=== PATIENT | female | born 1935 | race Caucasian/White ===

== ENCOUNTER 2018-07-11 15:48 | Inpatient (IN) | payer MEDICARE, MEDICAID | END 2018-07-14 14:40 | disposition home or self-care (01) | LOC: ER 15:48 → ED HOLD 20:41 → SUR 3N 22:50 | DX: S32.10XA Unspecified fracture of sacrum, initial encounter for closed fracture (principal); N39.0 Urinary tract infection, site not specified; G93.40 Encephalopathy, unspecified; N17.9 Acute kidney failure, unspecified; E87.6 Hypokalemia; N18.9 Chronic kidney disease, unspecified; M81.0 Age-related osteoporosis without current pathological fracture; J44.9 Chronic obstructive pulmonary disease, unspecified ==

== ENCOUNTER 2019-04-07 16:09 | Inpatient (IN) | payer MEDICARE, MEDICAID ==
[~2019-04-07] VITALS: Ht 144.8 cm; Wt 36.0 kg
[~2019-04-07 16:09] MED LIST: ALBU8HFA PO; CLOP75TA35 PO; FLUT1DIS10 INH; METO-395 PO; TRAM50TA2 PO
[2019-04-07 18:38] LABS: BASOPHILS # (AUTO) 0.1 X10'3 (0-0.2); BASOPHILS % (AUTO) 0.5 % (0-1); EOSINOPHILS % (AUTO) 0.2 % (0-6); HEMOGLOBIN 9.7 g/dl (12.0-16.0); LYMPHOCYTES # (AUTO) 1.9 X10'3 (1.1-4.8); LYMPHOCYTES % (AUTO) 9.8 % (21-51); MEAN CORPUSCULAR HEMOGLOBIN 27.7 PG (27.0-31.0); MEAN CORPUSCULAR HGB CONC 32.2 g/dL (33.0-36.5); MEAN CORPUSCULAR VOLUME 86.1 FL (78-98); MONOCYTES # (AUTO) 1.7 X10'3 (0-0.9); MONOCYTES % (AUTO) 8.7 % (2-12); NEUTROPHILS % (AUTO) 80.8 % (42-75); PLATELET COUNT 373 X10'3 (140-440); RED BLOOD COUNT 3.49 X10'6 (4.20-5.60); RED CELL DISTRIBUTION WIDTH 20.4 % (11.5-14.5); WHITE BLOOD COUNT 19.8 X10'3 (4.5-11.0)
[2019-04-07] MEDS ORDERED: normal saline 1000ml 1,000 ML IV ONE ×2 (18:45→21:05)
[2019-04-07] MEDS ORDERED: clopidogrel 300mg tablet PO ONE (19:00)
[2019-04-07] MEDS ORDERED: CefTRIAXone 2gm/D5W 50ml 50 ML IV ONE (19:00)
[2019-04-07 19:04] LABS: ALANINE AMINOTRANSFERASE 53 U/L (12-78); ALBUMIN 2.1 G/DL (3.4-5.0); ALBUMIN/GLOBULIN RATIO 0.4 (1.1-1.5); ALKALINE PHOSPHATASE 509 IU/L (46-116); ANION GAP 10 (8-16); ASPARTATE AMINO TRANSFERASE 55 U/L (10-37); BILIRUBIN,TOTAL 0.6 MG/DL (0.1-1.0); BLOOD UREA NITROGEN 36 MG/DL (7-18); BUN/CREATININE RATIO 32.1 (6.6-38.0); CALCIUM 8.6 MG/DL (8.5-10.1); CHLORIDE 104 MMOL/L (99-107); CREATININE 1.12 MG/DL (0.40-0.90); ETHANOL < 0.010 GM/DL (0.0-0.010); GLUCOSE 95 MG/DL (70-104); LIPASE 208 U/L (73-393); PARTIAL THROMBOPLASTIN TIME 32 SECONDS (22-32); POTASSIUM 3.2 MMOL/L (3.5-5.1); SODIUM 140 MMOL/L (135-145); TOTAL PROTEIN 7.2 G/DL (6.4-8.2); eGFR 47 ML/MIN
[2019-04-07 19:24] LABS: PLATELET ESTIMATE NORMAL; TOTAL CELLS COUNTED 100; TOXIC GRANULATION 1+; TOXIC VACUOLATION FEW
[2019-04-07 19:25] LABS: ANISOCYTOSIS 3+; POLYCHROMASIA FEW; TARGET CELLS FEW
[2019-04-07 19:26] LABS: HYPOCHROMASIA 1+
[2019-04-07 19:34] LABS: CLARITY,URINE CLOUDY (Clear); COLOR,URINE YELLOW (Yellow); GLUCOSE, URINE NEGATIVE (Neg); KETONES,URINE NEGATIVE (Neg); LEUKOCYTE ESTERASE ,URINE SMALL (Neg); NITRITES, URINE POSITIVE (Neg); OCCULT BLOOD,URINE TRACE-INTACT (Neg); PH,URINE 5.5 (4.8-8.0); PROTEIN,URINE 30 mg/dl (Neg); UROBILINOGEN,URINE 0.2 E.U/dL (0.2-1.0)
--- NOTE | 2019-04-07 19:35 | NUR ---
[facility] CAREGIVER PHONE NUMBER [phone]
[2019-04-07 19:41] LABS: UA COLLECTION TYPE STRAIGHT CATH
[2019-04-07 19:42] LABS: WBC,URINE TNTC /HPF (0-4)
[2019-04-07 19:43] LABS: BACTERIA,URINE 4+ /HPF (Neg); MUCUS STRANDS FEW /LPF (Neg); RBC,URINE 0-2 /HPF (0-2); SQUAMOUS EPITHELIAL CELL,UR FEW /LPF (FEW); WBC CLUMPS,URINE MODERATE /HPF (NEGATIVE)
[2019-04-07] MEDS ORDERED: normal saline 1000ML IV soln IVB ONE (19:45)
[2019-04-07] MEDS ORDERED: azithromycin/NS 500mg/250ml 250 ML IV ONE (19:45)
[2019-04-07] MEDS ORDERED: acetaminophen 325mg tablet PO ONE (20:30)
[2019-04-07] MEDS ORDERED: nitroGLYCERIN 0.4mg SUBLingual tab SL PRN (21:05)
[2019-04-07] MEDS ORDERED: magnesium 4gm in 100ml NS 100 ML IV PRN (21:05)
[2019-04-07] MEDS ORDERED: ondansetron/PF 4mg/2ml inj IV PRN (21:05)
[2019-04-07] MEDS ORDERED: magnesium hydroxide 30ml (MOM) UD suspension PO PRN (21:05)
[2019-04-07] MEDS ORDERED: potassium Cl 20 mEq SR tablet PO PRN (21:05)
[2019-04-07] MEDS ORDERED: magnesium 2GM in 50ml NS 50 ML IV PRN (21:05)
[2019-04-07] MEDS ORDERED: magnesium Cl slow-release 64mg tablet PO PRN (21:05)
[2019-04-07] MEDS ORDERED: bisacodyl 10mg suppository rectal RC PRN (21:05)
[2019-04-07] MEDS ORDERED: mag hydrox/Alum hydrox/simeth 30ml oral suspension PO PRN (21:05)
[2019-04-07] MEDS ORDERED: acetaminophen 325mg tablet PO PRN (21:05)
[2019-04-07] MEDS ORDERED: morphine 2 MG/ML inj. syringe IV PRN (21:05)
[2019-04-07] MEDS ORDERED: potassium CL 10mEq/100ml bag 100 ML IV PRN ×2 (21:05)
[2019-04-07 22:00] VITALS: BP 115/55
--- NOTE | 2019-04-07 22:00 | NUR ---
Patient in room PCU 3024. I have received report from Juanis FUNK RN and had the opportunity to ask questions and assume patient care.
--- NOTE | 2019-04-07 22:05 | NUR ---
Pt arrived via gurney in no acute distress. Assisted to bed and oriented to surroundings and POC. HH sandwich given w/juice, tolerating well. Pt states she is unable to stand or transfer. Moves all extremities well while in bed. IV NS infusing as ordered. Telemetry unit placed showing SR. Dr. Goncalves notified of second Troponin result of 2.85. Orders given. To continue Troponin series, ACS Protocol. Pt. has complaints of generalized joint pain. Tylenol admin. f/good effect. Denies CP at this time.
[2019-04-07] MEDS ORDERED: heparin 10,000 units/1 ML INJ IV ONE (23:25)
[2019-04-07] MEDS ORDERED: ipratropium/albuterol 3ml nebule NEB PRN (23:45)
[2019-04-08] MEDS: acetaminophen 325mg tablet PO PRN ×3 (00:13→20:13)
[2019-04-08] MEDS: heparin 25,000 UNIT/250ml bag 250 ML IV SCH ×3 (00:49→17:20)
[2019-04-08 02:00] VITALS: BP 114/56
[2019-04-08] MEDS ORDERED: albuterol 2.5 MG/3 ML nebule NEB SCH (02:00)
[2019-04-08 03:04] LABS: BASOPHILS % (AUTO) 0.2 % (0-1); EOSINOPHILS # (AUTO) 0.2 X10'3 (0-0.9); EOSINOPHILS % (AUTO) 0.7 % (0-6); HEMATOCRIT 27.3 % (35.0-45.0); HEMOGLOBIN 8.8 g/dl (12.0-16.0); LYMPHOCYTES # (AUTO) 1.9 X10'3 (1.1-4.8); LYMPHOCYTES % (AUTO) 8.9 % (21-51); MEAN CORPUSCULAR HEMOGLOBIN 27.8 PG (27.0-31.0); MEAN CORPUSCULAR HGB CONC 32.1 g/dL (33.0-36.5); MEAN CORPUSCULAR VOLUME 86.7 FL (78-98); MEAN PLATELET VOLUME 9.9 FL (7.4-10.4); MONOCYTES # (AUTO) 2.4 X10'3 (0-0.9); MONOCYTES % (AUTO) 10.9 % (2-12); NEUTROPHILS # (AUTO) 17.2 X10'3 (1.8-7.7); NEUTROPHILS % (AUTO) 79.3 % (42-75); PLATELET COUNT 340 X10'3 (140-440); RED BLOOD COUNT 3.15 X10'6 (4.20-5.60); RED CELL DISTRIBUTION WIDTH 19.9 % (11.5-14.5); WHITE BLOOD COUNT 21.7 X10'3 (4.5-11.0)
[2019-04-08 03:15] LABS: ALBUMIN 1.9 G/DL (3.4-5.0); ANION GAP 11 (8-16); BLOOD UREA NITROGEN 29 MG/DL (7-18); BUN/CREATININE RATIO 27.9 (6.6-38.0); CALCIUM 8.2 MG/DL (8.5-10.1); CHLORIDE 107 MMOL/L (99-107); CREATININE 1.04 MG/DL (0.40-0.90); GLUCOSE 164 MG/DL (70-104); MAGNESIUM 1.8 MG/DL (1.5-2.4); SODIUM 142 MMOL/L (135-145); TOTAL CARBON DIOXIDE 24.3 MMOL/L (24-32); eGFR 51 ML/MIN
[2019-04-08 03:29] LABS: TROPONIN I 2.91 NG/ML (0.0-0.05)
[2019-04-08] MEDS: potassium Cl 20 mEq SR tablet PO PRN ×2 (04:37→09:12)
[2019-04-08 06:00] VITALS: BP 122/52
--- NOTE | 2019-04-08 06:00 | NUR ---
Patient in room PCU 3024. I have received report from Kirstin MORENO and had the opportunity to ask questions and assume patient care.
[2019-04-08 06:17] LABS: TOTAL CELLS COUNTED 100
[2019-04-08 06:19] LABS: ANISOCYTOSIS 2+; PLATELET ESTIMATE NORMAL
[2019-04-08 06:20] LABS: HYPOCHROMASIA 1+
[2019-04-08 06:21] LABS: POLYCHROMASIA FEW
[2019-04-08 06:24] LABS: PARTIAL THROMBOPLASTIN TIME 42 SECONDS (22-32)
--- NOTE | 2019-04-08 06:27 | NUR ---
Problems reprioritized. Patient report given, questions answered & plan of care reviewed with Gopi MORENO.
[2019-04-08 06:29] LABS: SMUDGE CELLS 2+
--- NOTE | 2019-04-08 06:49 | NUR ---
PAGER ID: [phone] MESSAGE: RE: Reva Flores, Room: [facility]. Critical 12hr trop 2.51. 6hr trop was 2.91 -Gopi [facility] #[id number] Dr. Goncalves paged concerning Pt's 12hr hour crit trop of 2.51
[2019-04-08] MEDS: K and/or MAG REPLACEMENT MC SCH (08:00)
[2019-04-08] MEDS: ipratropium/albuterol 3ml nebule NEB SCH ×3 (08:19→20:30)
[2019-04-08] MEDS: budesonide 0.5mg/2ml UD nebule IH SCH ×2 (08:19→20:30)
[2019-04-08] MEDS: clopidogrel 75mg tablet PO SCH (09:09)
[2019-04-08] MEDS: azithromycin 250mg tablet PO SCH (09:09)
[2019-04-08] MEDS: metoprolol succinate 25mg (24-HOUR) SR. Tablet PO SCH (09:10)
[2019-04-08] MEDS: heparin 10,000 units/1 ML INJ IV PRN ×2 (09:26→17:18)
[2019-04-08] MEDS: CefTRIAXone 2gm/D5W 50ml 50 ML IV SCH (09:30)
--- NOTE | 2019-04-08 10:37 | NUR ---
Pt with low BMI of 17.2 however current documented wt is pt stated. Per H&P pt is a poor historian and demented. Per wt hx pt 40 kg August 2016 and 42.7 kg in June of this year and pt with 75-100% PO intake on heart healthy diet during that admit. Pt currently on heart healthy diet, pending documentation of PO intake this visit. No documented edema. No malnutrition at this time. Will continue to follow. Addendum: 04/08/19 at [address] Amended: Links added.
[2019-04-08 11:00] VITALS: BP 115/47
--- NOTE | 2019-04-08 12:51 | NUR ---
PAGER ID: [phone] MESSAGE: RE: Reva Flores, Room: 3023B. Pt has had 5 loose stools. Do you want an order to check for c-diff? -[facility] #[id number] Dr. zhang paged concerning Pt's multiple loose stools.
--- NOTE | 2019-04-08 13:50 | NUR ---
PAGER ID: [phone] MESSAGE: RE: Reva Flores, Room: 3023b. 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 Can we feed Pt? -[facility] #[id number] Dr. 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
[2019-04-08 15:00] VITALS: BP 142/65
[2019-04-08 18:00] VITALS: BP 126/47
--- NOTE | 2019-04-08 18:20 | NUR ---
Problems reprioritized. Patient report given, questions answered & plan of care reviewed with Kirstin MORENO.
--- NOTE | 2019-04-08 19:43 | NUR ---
Patient in room PCU 3023. I have received report from Gopi MORENO and had the opportunity to ask questions and assume patient care.
[2019-04-08] MEDS: lactobacillus rhamnosus 10,000 MMU CELLS/CAPSULE PO SCH (20:12)
[2019-04-08 22:00] VITALS: BP 131/59
[2019-04-09] VITALS (7 sets, daily range): BP systolic 121–167; BP diastolic 53–73
[2019-04-09] MEDS: heparin 10,000 units/1 ML INJ IV PRN (01:25)
[2019-04-09] MEDS: heparin 25,000 UNIT/250ml bag 250 ML IV SCH (01:28)
--- NOTE | 2019-04-09 06:46 | NUR ---
Patient in room PCU 3023. I have received report from JOSH Fulton and had the opportunity to ask questions and assume patient care.
--- NOTE | 2019-04-09 07:20 | NUR ---
Problems reprioritized. Patient report given, questions answered & plan of care reviewed with Christin MORENO.
[2019-04-09] MEDS: budesonide 0.5mg/2ml UD nebule IH SCH ×2 (08:00→21:08)
[2019-04-09] MEDS: K and/or MAG REPLACEMENT MC SCH (08:00)
[2019-04-09 08:01] LABS: BASOPHILS % (AUTO) 0.2 % (0-1); EOSINOPHILS # (AUTO) 0.2 X10'3 (0-0.9); EOSINOPHILS % (AUTO) 0.8 % (0-6); HEMOGLOBIN 9.1 g/dl (12.0-16.0); LYMPHOCYTES % (AUTO) 9.3 % (21-51); MEAN CORPUSCULAR HEMOGLOBIN 27.8 PG (27.0-31.0); MEAN CORPUSCULAR HGB CONC 32.4 g/dL (33.0-36.5); MEAN CORPUSCULAR VOLUME 85.9 FL (78-98); MEAN PLATELET VOLUME 9.7 FL (7.4-10.4); MONOCYTES # (AUTO) 1.7 X10'3 (0-0.9); MONOCYTES % (AUTO) 7.9 % (2-12); NEUTROPHILS # (AUTO) 17.3 X10'3 (1.8-7.7); NEUTROPHILS % (AUTO) 81.8 % (42-75); PLATELET COUNT 421 X10'3 (140-440); RED BLOOD COUNT 3.26 X10'6 (4.20-5.60); RED CELL DISTRIBUTION WIDTH 20.5 % (11.5-14.5); WHITE BLOOD COUNT 21.1 X10'3 (4.5-11.0)
[2019-04-09 08:06] LABS: ALBUMIN 2.1 G/DL (3.4-5.0); ANION GAP 10 (8-16); BLOOD UREA NITROGEN 15 MG/DL (7-18); BUN/CREATININE RATIO 18.8 (6.6-38.0); CALCIUM 8.6 MG/DL (8.5-10.1); CHLORIDE 105 MMOL/L (99-107); GLUCOSE 124 MG/DL (70-104); MAGNESIUM 1.8 MG/DL (1.5-2.4); POTASSIUM 3.7 MMOL/L (3.5-5.1); SODIUM 140 MMOL/L (135-145); TOTAL CARBON DIOXIDE 24.7 MMOL/L (24-32); eGFR 69 ML/MIN
[2019-04-09] MEDS: CefTRIAXone 2gm/D5W 50ml 50 ML IV SCH (08:41)
[2019-04-09] MEDS: metoprolol succinate 25mg (24-HOUR) SR. Tablet PO SCH (08:41)
[2019-04-09] MEDS: azithromycin 250mg tablet PO SCH (08:41)
[2019-04-09] MEDS: lactobacillus rhamnosus 10,000 MMU CELLS/CAPSULE PO SCH ×2 (08:41→19:24)
[2019-04-09] MEDS: clopidogrel 75mg tablet PO SCH (08:42)
[2019-04-09] MEDS: acetaminophen 325mg tablet PO PRN ×2 (08:42→19:24)
[2019-04-09] MEDS: ipratropium/albuterol 3ml nebule NEB SCH ×3 (09:00→21:07)
[2019-04-09 09:23] LABS: ANISOCYTOSIS 3+; HYPOCHROMASIA 1+; LARGE PLATELETS FEW; PLATELET ESTIMATE NORMAL; POLYCHROMASIA FEW; SCHISTOCYTES FEW
[2019-04-09] MEDS ORDERED: pneumococcal 23-VAL P-sac vacc 25 mcg/0.5ml vial IMVAC ONE (10:00)
[2019-04-09] MEDS ORDERED: FLU VACC QS2019-20(6MOS UP)/PF 60 MCG/0.5 ML SYRINGE IMVAC ONE (10:00)
[2019-04-09] MEDS: traMADol 50MG tablet PO PRN (16:06)
--- NOTE | 2019-04-09 18:23 | NUR ---
Problems reprioritized. Patient report given, questions answered & plan of care reviewed with JOSH Samuels.
--- NOTE | 2019-04-09 19:01 | NUR ---
Patient in room PCU 3023. I have received report from Christin MORENO and had the opportunity to ask questions and assume patient care.
[2019-04-09] MEDS: heparin, porcine 5000 units/ml vial SQ SCH (19:24)
[2019-04-10] VITALS (7 sets, daily range): BP systolic 104–146; BP diastolic 58–87
--- NOTE | 2019-04-10 06:16 | NUR ---
Problems reprioritized. Patient report given, questions answered & plan of care reviewed with Christin MORENO.
--- NOTE | 2019-04-10 06:18 | NUR ---
Patient in room PCU 3023. I have received report from JOSH Samuels and had the opportunity to ask questions and assume patient care.
[2019-04-10 06:19] LABS: ALBUMIN 2.1 G/DL (3.4-5.0); ANION GAP 11 (8-16); BLOOD UREA NITROGEN 16 MG/DL (7-18); BUN/CREATININE RATIO 18.8 (6.6-38.0); CALCIUM 8.5 MG/DL (8.5-10.1); CHLORIDE 106 MMOL/L (99-107); CREATININE 0.85 MG/DL (0.40-0.90); GLUCOSE 99 MG/DL (70-104); MAGNESIUM 1.7 MG/DL (1.5-2.4); POTASSIUM 3.6 MMOL/L (3.5-5.1); SODIUM 143 MMOL/L (135-145); TOTAL CARBON DIOXIDE 26.3 MMOL/L (24-32); eGFR 64 ML/MIN
--- NOTE | 2019-04-10 06:19 | NUR ---
Problems reprioritized. Patient report given, questions answered & plan of care reviewed with Christin MORENO and Ashley MORENO.
[2019-04-10 06:46] LABS: BASOPHILS # (AUTO) 0.1 X10'3 (0-0.2); BASOPHILS % (AUTO) 0.3 % (0-1); EOSINOPHILS # (AUTO) 0.4 X10'3 (0-0.9); HEMATOCRIT 29.5 % (35.0-45.0); HEMOGLOBIN 9.4 g/dl (12.0-16.0); LYMPHOCYTES # (AUTO) 1.8 X10'3 (1.1-4.8); LYMPHOCYTES % (AUTO) 9.5 % (21-51); MEAN CORPUSCULAR HEMOGLOBIN 27.8 PG (27.0-31.0); MEAN CORPUSCULAR HGB CONC 31.9 g/dL (33.0-36.5); MEAN CORPUSCULAR VOLUME 87.1 FL (78-98); MEAN PLATELET VOLUME 10.1 FL (7.4-10.4); MONOCYTES # (AUTO) 2.2 X10'3 (0-0.9); MONOCYTES % (AUTO) 11.4 % (2-12); NEUTROPHILS # (AUTO) 14.5 X10'3 (1.8-7.7); NEUTROPHILS % (AUTO) 76.8 % (42-75); PLATELET COUNT 442 X10'3 (140-440); RED BLOOD COUNT 3.39 X10'6 (4.20-5.60); RED CELL DISTRIBUTION WIDTH 20.2 % (11.5-14.5); WHITE BLOOD COUNT 18.9 X10'3 (4.5-11.0)
[2019-04-10] MEDS: K and/or MAG REPLACEMENT MC SCH (08:00)
[2019-04-10] MEDS: azithromycin 250mg tablet PO SCH (08:56)
[2019-04-10] MEDS: metoprolol succinate 25mg (24-HOUR) SR. Tablet PO SCH (08:56)
[2019-04-10] MEDS: lactobacillus rhamnosus 10,000 MMU CELLS/CAPSULE PO SCH ×2 (08:56→19:40)
[2019-04-10] MEDS: clopidogrel 75mg tablet PO SCH (08:56)
[2019-04-10] MEDS: heparin, porcine 5000 units/ml vial SQ SCH ×2 (08:56→19:40)
[2019-04-10] MEDS: ipratropium/albuterol 3ml nebule NEB SCH ×3 (09:27→20:41)
[2019-04-10] MEDS: budesonide 0.5mg/2ml UD nebule IH SCH ×2 (09:27→20:41)
[2019-04-10] MEDS: CefTRIAXone 2gm/D5W 50ml 50 ML IV SCH (10:54)
--- NOTE | 2019-04-10 18:35 | NUR ---
Patient in room PCU 3016. I have received report from JOSH Waller and had the opportunity to ask questions and assume patient care.
--- NOTE | 2019-04-10 18:48 | NUR ---
Problems reprioritized. Patient report given, questions answered & plan of care reviewed with JOSH Aguero.
[2019-04-10] MEDS: acetaminophen 325mg tablet PO PRN (19:41)
--- NOTE | 2019-04-10 19:50 | NUR ---
Pt's pain 8/10 on right hip. BP 104/86. Tylenol 650 mg given. Will continue to monitor.
[2019-04-10] MEDS: traMADol 50MG tablet PO PRN (22:53)
[2019-04-11 02:00] VITALS: BP 122/65
[2019-04-11] MEDS: acetaminophen 325mg tablet PO PRN ×2 (02:06→10:00)
[2019-04-11 06:01] LABS: BASOPHILS # (AUTO) 0.1 X10'3 (0-0.2); BASOPHILS % (AUTO) 0.4 % (0-1); EOSINOPHILS # (AUTO) 0.4 X10'3 (0-0.9); HEMATOCRIT 29.9 % (35.0-45.0); HEMOGLOBIN 9.5 g/dl (12.0-16.0); LYMPHOCYTES % (AUTO) 10.1 % (21-51); MEAN CORPUSCULAR HEMOGLOBIN 27.9 PG (27.0-31.0); MEAN CORPUSCULAR HGB CONC 31.7 g/dL (33.0-36.5); MEAN CORPUSCULAR VOLUME 88.1 FL (78-98); MEAN PLATELET VOLUME 9.9 FL (7.4-10.4); MONOCYTES # (AUTO) 2.3 X10'3 (0-0.9); MONOCYTES % (AUTO) 11.5 % (2-12); NEUTROPHILS # (AUTO) 15.3 X10'3 (1.8-7.7); PLATELET COUNT 435 X10'3 (140-440); WHITE BLOOD COUNT 20.2 X10'3 (4.5-11.0)
[2019-04-11 06:21] LABS: ALBUMIN 2.1 G/DL (3.4-5.0); ANION GAP 12 (8-16); BLOOD UREA NITROGEN 32 MG/DL (7-18); BUN/CREATININE RATIO 29.6 (6.6-38.0); CALCIUM 9.5 MG/DL (8.5-10.1); CHLORIDE 104 MMOL/L (99-107); CREATININE 1.08 MG/DL (0.40-0.90); GLUCOSE 108 MG/DL (70-104); POTASSIUM 4.2 MMOL/L (3.5-5.1); SODIUM 140 MMOL/L (135-145); TOTAL CARBON DIOXIDE 23.8 MMOL/L (24-32); eGFR 49 ML/MIN
--- NOTE | 2019-04-11 06:30 | NUR ---
Patient in room PCU 3016. I have received report from More MORENO and had the opportunity to ask questions and assume patient care. Patient asleep in bed with no complaints at this time. All immediate needs met.
[2019-04-11 06:38] LABS: ANISOCYTOSIS 3+; PLATELET ESTIMATE NORMAL
[2019-04-11 06:39] LABS: LARGE PLATELETS FEW
--- NOTE | 2019-04-11 06:39 | NUR ---
Problems reprioritized. Patient report given, questions answered & plan of care reviewed with JOSH Oquendo.
--- NOTE | 2019-04-11 06:39 | NUR ---
Problems reprioritized. Patient report given, questions answered & plan of care reviewed with JOSH Oquendo.
--- NOTE | 2019-04-11 06:49 | NUR ---
Patient in room U 3016. I have received report from More MORENO and had the opportunity to ask questions and assume patient care. Patient in room with sitter, resting comfortably.
[2019-04-11 07:00] VITALS: BP 113/60
[2019-04-11] MEDS: ipratropium/albuterol 3ml nebule NEB SCH ×3 (07:10→20:02)
[2019-04-11] MEDS: budesonide 0.5mg/2ml UD nebule IH SCH ×2 (07:11→20:02)
[2019-04-11] MEDS: K and/or MAG REPLACEMENT MC SCH (08:00)
[2019-04-11] MEDS: heparin, porcine 5000 units/ml vial SQ SCH ×2 (09:59→20:33)
[2019-04-11] MEDS: lactobacillus rhamnosus 10,000 MMU CELLS/CAPSULE PO SCH ×2 (10:00→20:33)
[2019-04-11] MEDS: metoprolol succinate 25mg (24-HOUR) SR. Tablet PO SCH (10:00)
[2019-04-11] MEDS: azithromycin 250mg tablet PO SCH (10:01)
[2019-04-11] MEDS: clopidogrel 75mg tablet PO SCH (10:01)
[2019-04-11] MEDS: traMADol 50MG tablet PO PRN ×2 (10:01→16:59)
[2019-04-11] MEDS: CefTRIAXone 2gm/D5W 50ml 50 ML IV SCH (10:02)
[2019-04-11 11:00] VITALS: BP 151/56
[2019-04-11 15:00] VITALS: BP 114/46
--- NOTE | 2019-04-11 15:31 | NUR ---
Initial: Pt PO 75-100% heart healthy meals meeting needs. LBM 04/10. No nutrition concerns at this time. Will continue to monitor. Rec: 1. continue heart healthy diet 2. wt per rx Addendum: 04/11/19 at [address] Amended: Links added.
[2019-04-11 18:00] VITALS: BP 149/48
--- NOTE | 2019-04-11 18:15 | NUR ---
Patient in room PCU 3016. I have received report from Azra MORENO and had the opportunity to ask questions and assume patient care. Patient is finishing up her dinner, she has a sitter at bedside. Will continue to monitor closely.
--- NOTE | 2019-04-11 18:41 | NUR ---
Problems reprioritized. Patient report given, questions answered & plan of care reviewed with Nadja MORENO. Patient stable at transfer of care
--- NOTE | 2019-04-11 18:42 | NUR ---
Patient in room 7955E Problems reprioritized. Patient report given, questions answered & plan of care reviewed with Susannah MORENO. Patient stable at transfer of care
--- NOTE | 2019-04-11 18:57 | NUR ---
Student documentation: I have reviewed and agree with all interventions, assessments performed and documented by Debbie FARNSWORTH. Student Medication Administration: For this medication-pass time frame, all medication were reviewed, dispensed, administered and documented per hospital policy by Debbie MORENO.
[2019-04-11] MEDS: morphine 2 MG/ML inj. syringe IV PRN (21:40)
[2019-04-11 22:00] VITALS: BP 110/60
[2019-04-12 02:00] VITALS: BP 124/65
[2019-04-12 04:21] LABS: BASOPHILS # (AUTO) 0.2 X10'3 (0-0.2); EOSINOPHILS # (AUTO) 0.2 X10'3 (0-0.9); EOSINOPHILS % (AUTO) 1.1 % (0-6); HEMATOCRIT 26.2 % (35.0-45.0); HEMOGLOBIN 8.6 g/dl (12.0-16.0); LYMPHOCYTES # (AUTO) 1.7 X10'3 (1.1-4.8); LYMPHOCYTES % (AUTO) 7.3 % (21-51); MEAN CORPUSCULAR HEMOGLOBIN 28.4 PG (27.0-31.0); MEAN CORPUSCULAR HGB CONC 32.8 g/dL (33.0-36.5); MEAN CORPUSCULAR VOLUME 86.8 FL (78-98); MEAN PLATELET VOLUME 10.1 FL (7.4-10.4); MONOCYTES # (AUTO) 2.7 X10'3 (0-0.9); MONOCYTES % (AUTO) 11.8 % (2-12); NEUTROPHILS # (AUTO) 18.2 X10'3 (1.8-7.7); NEUTROPHILS % (AUTO) 78.8 % (42-75); PLATELET COUNT 429 X10'3 (140-440); RED BLOOD COUNT 3.02 X10'6 (4.20-5.60); RED CELL DISTRIBUTION WIDTH 21.4 % (11.5-14.5)
[2019-04-12 04:31] LABS: ANION GAP 11 (8-16); BLOOD UREA NITROGEN 33 MG/DL (7-18); BUN/CREATININE RATIO 38.4 (6.6-38.0); CALCIUM 8.9 MG/DL (8.5-10.1); CHLORIDE 106 MMOL/L (99-107); CREATININE 0.86 MG/DL (0.40-0.90); GLUCOSE 114 MG/DL (70-104); MAGNESIUM 1.8 MG/DL (1.5-2.4); POTASSIUM 4.6 MMOL/L (3.5-5.1); SODIUM 141 MMOL/L (135-145); eGFR 63 ML/MIN
[2019-04-12] MEDS: morphine 2 MG/ML inj. syringe IV PRN ×3 (05:32→19:47)
[2019-04-12 05:38] LABS: ANISOCYTOSIS 3+; PLATELET ESTIMATE NORMAL
[2019-04-12 06:00] VITALS: BP 148/61
[2019-04-12] MEDS: budesonide 0.5mg/2ml UD nebule IH SCH ×2 (08:00→20:37)
[2019-04-12] MEDS: CefTRIAXone 2gm/D5W 50ml 50 ML IV SCH (08:01)
[2019-04-12] MEDS: K and/or MAG REPLACEMENT MC SCH (08:03)
[2019-04-12] MEDS: heparin, porcine 5000 units/ml vial SQ SCH ×2 (08:09→19:55)
[2019-04-12] MEDS: metoprolol succinate 25mg (24-HOUR) SR. Tablet PO SCH (08:43)
[2019-04-12] MEDS: clopidogrel 75mg tablet PO SCH (08:43)
[2019-04-12] MEDS: lactobacillus rhamnosus 10,000 MMU CELLS/CAPSULE PO SCH ×2 (08:43→19:55)
[2019-04-12] MEDS: ipratropium/albuterol 3ml nebule NEB SCH ×3 (09:00→20:37)
--- NOTE | 2019-04-12 10:50 | NUR ---
continuous Rapid A-Fib with rate in 120-130's. Sherry ALVARADO is notified, medication ordered: 5mg Diltiazem IV push. Heart Rate reduced by 20-30 bpm. SBP dropped from 105 to 88. frequent BP checks per Dr. Powell. MAP remains at 60 or greater. Will continue to monitor. After 90 min. HR is 100 and SBP is 85 with a MAP of 61. Pt. remains asymptomatic. Addendum: 04/12/19 at 1219 by Mandy Schneider RN Wrong Pt.
[2019-04-12 11:00] VITALS: BP 123/55
[2019-04-12] MEDS: traMADol 50MG tablet PO PRN (11:24)
[2019-04-12 15:00] VITALS: BP 110/43
--- NOTE | 2019-04-12 17:10 | NUR ---
Need for Social Service: Reported by current geriatric personal care aide. Page sent: [id number] Reva Flores Care Provider has information that she would like to share. Many questions about Pt. welfare. Please Call Caregiver Mandy at [phone]
--- NOTE | 2019-04-12 18:15 | NUR ---
Patient in room PCU 3016. I have received report from Mandy MORENO and had the opportunity to ask questions and assume patient care. Patient is resting, will continue to monitor.
[2019-04-12 19:00] VITALS: BP 127/73
[2019-04-12 23:00] VITALS: BP 127/55
[2019-04-13] MEDS: traMADol 50MG tablet PO PRN ×4 (01:36→20:32)
[2019-04-13 03:00] VITALS: BP 121/73
[2019-04-13] MEDS: morphine 2 MG/ML inj. syringe IV PRN (03:16)
[2019-04-13 06:00] VITALS: BP 126/70
--- NOTE | 2019-04-13 06:00 | NUR ---
Patient in room PCU 3016. I have received report from Dunia MORENO and had the opportunity to ask questions and assume patient care.
[2019-04-13] MEDS: K and/or MAG REPLACEMENT MC SCH (08:00)
[2019-04-13] MEDS: budesonide 0.5mg/2ml UD nebule IH SCH ×2 (08:00→19:54)
--- NOTE | 2019-04-13 08:40 | NUR ---
Patient refused SVN tx @ this time. No Shortness of breath noted. Addendum: 04/13/19 at 0841 by Bess Rock RT Amended: Links added.
[2019-04-13] MEDS: ipratropium/albuterol 3ml nebule NEB SCH ×3 (08:41→19:54)
[2019-04-13 09:00] LABS: BASOPHILS # (AUTO) 0.1 X10'3 (0-0.2); BASOPHILS % (AUTO) 0.4 % (0-1); EOSINOPHILS # (AUTO) 0.3 X10'3 (0-0.9); EOSINOPHILS % (AUTO) 1.2 % (0-6); HEMATOCRIT 26.2 % (35.0-45.0); HEMOGLOBIN 8.4 g/dl (12.0-16.0); LYMPHOCYTES # (AUTO) 1.6 X10'3 (1.1-4.8); MEAN CORPUSCULAR HEMOGLOBIN 28.3 PG (27.0-31.0); MEAN CORPUSCULAR HGB CONC 32.2 g/dL (33.0-36.5); MEAN CORPUSCULAR VOLUME 88.1 FL (78-98); MEAN PLATELET VOLUME 10.4 FL (7.4-10.4); MONOCYTES # (AUTO) 3.1 X10'3 (0-0.9); MONOCYTES % (AUTO) 13.6 % (2-12); NEUTROPHILS # (AUTO) 17.8 X10'3 (1.8-7.7); NEUTROPHILS % (AUTO) 77.8 % (42-75); PLATELET COUNT 423 X10'3 (140-440); RED BLOOD COUNT 2.97 X10'6 (4.20-5.60); RED CELL DISTRIBUTION WIDTH 21.1 % (11.5-14.5); WHITE BLOOD COUNT 22.9 X10'3 (4.5-11.0)
[2019-04-13] MEDS: heparin, porcine 5000 units/ml vial SQ SCH ×2 (09:05→21:35)
[2019-04-13] MEDS: metoprolol succinate 25mg (24-HOUR) SR. Tablet PO SCH (09:17)
[2019-04-13] MEDS: clopidogrel 75mg tablet PO SCH (09:18)
[2019-04-13] MEDS: lactobacillus rhamnosus 10,000 MMU CELLS/CAPSULE PO SCH ×2 (09:18→21:34)
[2019-04-13 09:30] LABS: ANISOCYTOSIS 3+; LARGE PLATELETS FEW; PLATELET ESTIMATE NORMAL
[2019-04-13 11:00] VITALS: BP 100/63
[2019-04-13 15:00] VITALS: BP 99/63
[2019-04-13 18:00] VITALS: BP 121/71
--- NOTE | 2019-04-13 18:00 | NUR ---
Problems reprioritized. Patient report given, questions answered & plan of care reviewed with Dunia MORENO.
--- NOTE | 2019-04-13 18:15 | NUR ---
Patient in room PCU 3016. I have received report from Ksenia MORENO and had the opportunity to ask questions and assume patient care. Patient is finishing up her dinner, will continue to monitor.
[2019-04-13 22:00] VITALS: BP 112/59
[2019-04-14] MEDS: morphine 2 MG/ML inj. syringe IV PRN (01:07)
[2019-04-14 02:00] VITALS: BP 151/63
[2019-04-14] MEDS ORDERED: FLU VACC QS2019-20(6MOS UP)/PF 60 MCG/0.5 ML SYRINGE IMVAC ONE (04:25)
[2019-04-14] MEDS ORDERED: pneumococcal 23-VAL P-sac vacc 25 mcg/0.5ml vial IMVAC ONE (04:25)
[2019-04-14] MEDS ORDERED: FLU VACC QS 2019-20 (6 MOS UP) 60 MCG/0.5 ML VIAL IMVAC ONE (04:30)
[2019-04-14 06:00] VITALS: BP 130/71
--- NOTE | 2019-04-14 06:00 | NUR ---
Patient in room PCU 3016. I have received report from Dunia MORENO and had the opportunity to ask questions and assume patient care.
--- NOTE | 2019-04-14 06:41 | NUR ---
Problems reprioritized. Patient report given, questions answered & plan of care reviewed with Ksenia MORENO.
[2019-04-14] MEDS: K and/or MAG REPLACEMENT MC SCH (08:00)
[2019-04-14] MEDS: budesonide 0.5mg/2ml UD nebule IH SCH (08:13)
[2019-04-14] MEDS: ipratropium/albuterol 3ml nebule NEB SCH (08:13)
[2019-04-14] MEDS: lactobacillus rhamnosus 10,000 MMU CELLS/CAPSULE PO SCH (08:51)
[2019-04-14] MEDS: heparin, porcine 5000 units/ml vial SQ SCH (08:52)
[2019-04-14] MEDS: clopidogrel 75mg tablet PO SCH (08:52)
[2019-04-14] MEDS: metoprolol succinate 25mg (24-HOUR) SR. Tablet PO SCH (08:52)
[2019-04-14] MEDS: acetaminophen 325mg tablet PO PRN (09:02)
[2019-04-14 09:59] LABS: BASOPHILS # (AUTO) 0.1 X10'3 (0-0.2); BASOPHILS % (AUTO) 0.5 % (0-1); EOSINOPHILS # (AUTO) 0.2 X10'3 (0-0.9); EOSINOPHILS % (AUTO) 0.7 % (0-6); HEMATOCRIT 29.3 % (35.0-45.0); HEMOGLOBIN 9.3 g/dl (12.0-16.0); LYMPHOCYTES # (AUTO) 2.5 X10'3 (1.1-4.8); LYMPHOCYTES % (AUTO) 9.8 % (21-51); MEAN CORPUSCULAR HEMOGLOBIN 27.9 PG (27.0-31.0); MEAN CORPUSCULAR HGB CONC 31.7 g/dL (33.0-36.5); MEAN CORPUSCULAR VOLUME 88.1 FL (78-98); MEAN PLATELET VOLUME 10.7 FL (7.4-10.4); MONOCYTES # (AUTO) 2.4 X10'3 (0-0.9); MONOCYTES % (AUTO) 9.5 % (2-12); NEUTROPHILS % (AUTO) 79.5 % (42-75); PLATELET COUNT 485 X10'3 (140-440); RED BLOOD COUNT 3.33 X10'6 (4.20-5.60); RED CELL DISTRIBUTION WIDTH 21.3 % (11.5-14.5)
[2019-04-14 10:17] LABS: WHITE BLOOD COUNT 25.2 X10'3 (4.5-11.0)
--- NOTE | 2019-04-14 10:19 | NUR ---
Page to Dr Crum re: Room 3016 A Reva Flores- critical WBC 25.2 please advise Ksenia [phone]
[2019-04-14 10:57] LABS: TOTAL CELLS COUNTED 100
[2019-04-14 10:58] LABS: ANISOCYTOSIS 3+; PLATELET ESTIMATE INCREASED
[2019-04-14 10:59] LABS: HYPOCHROMASIA 1+
[2019-04-14 11:00] VITALS: BP 101/63
[2019-04-14 11:01] LABS: LARGE PLATELETS FEW; POLYCHROMASIA FEW
--- NOTE | 2019-04-14 13:35 | NUR ---
Report given to Azra MORENO at [facility]. Patient to have a 2:30 pm filler picker time.
--- NOTE | 2019-04-14 14:40 | NUR ---
Patient transferred to [facility]. Transfer documents given to [facility] transport personnel. Report given to Azra MORENO at [facility] [place] earlier today. Personal belongings returned to patient. Tele box removed and returned to tele room. Peripheral IV removed, cannula intact. Patient wheeled out via wheelchair to [facility] transport by transport personnel.
--- NOTE | 2019-04-14 15:25 | NUR ---
I have reviewed and agree with all medications administered and interventions performed by [facility] Student Diogo Toro Addendum: 04/14/19 at 1526 by Bess Rock RT Amended: Links added.
== END 2019-04-14 15:01 | DRG 871 ==
LOC: ER 16:09 → PCU 3S 21:03
PROVIDERS: ADMIT Hospitalist; ATTEND Internal Medicine
DX: A41.9 Sepsis, unspecified organism (principal); J18.9 Pneumonia, unspecified organism; I21.4 Non-ST elevation (NSTEMI) myocardial infarction; E43 Unspecified severe protein-calorie malnutrition; G93.40 Encephalopathy, unspecified; N39.0 Urinary tract infection, site not specified; Z68.1 Body mass index [BMI] 19.9 or less, adult; E86.0 Dehydration; D64.9 Anemia, unspecified; G89.29 Other chronic pain; Z66 Do not resuscitate; E11.9 Type 2 diabetes mellitus without complications; K52.9 Noninfective gastroenteritis and colitis, unspecified; M54.9 Dorsalgia, unspecified; E87.6 Hypokalemia; J43.9 Emphysema, unspecified; B96.20 Unspecified Escherichia coli [E. coli] as the cause of diseases classified elsewhere; F03.90 Unspecified dementia, unspecified severity, without behavioral disturbance, psychotic disturbance, mood disturbance, and anxiety; Z23 Encounter for immunization; Z79.02 Long term (current) use of antithrombotics/antiplatelets; Z82.0 Family history of epilepsy and other diseases of the nervous system; Z86.73 Personal history of transient ischemic attack (TIA), and cerebral infarction without residual deficits; Z88.2 Allergy status to sulfonamides; Z88.6 Allergy status to analgesic agent; Z79.899 Other long term (current) drug therapy
CPT/HCPCS: 36415; 71045; 80048; 80053; 80320; 81001; 83605; 83690; 83735; 84132; 84145; 84484; 85025; 85610; 85730; 87040; 87077; 87081; 87088; 87186; 87324; 87449; 90732; 93005; 93306; 94640; 94760; 96365; 96368; 97110; 97116; 97162; 97530; 99285; G0378; J0456; J0696; J1644; J2270; J7626; Q2037